=== PATIENT | female | born 1995 | race Caucasian/White ===

== ENCOUNTER → 2018-02-21 18:33 | Outpatient (CLI) | payer BC, SELFPAY ==
[2018-02-21 13:24] VITALS: BMI 22.7
[2018-02-21 21:15] LABS: Chlamydia Trachomatis by PCR Negative (Negative); Neisserai gonorrhoeae by PCR Negative (Negative); Probe Check PASS; Sample Adequacy Control PASS; Specimen Processing Control PASS
[2018-02-24 14:49] LABS: HPV Reflexed? NOT INDICATED
== END ==
PROVIDERS: Referring Provider Obstetrics & Gynecology; Visit Provider Obstetrics & Gynecology
DX: Z34.90 Encounter for supervision of normal pregnancy, unspecified, unspecified trimester (principal)
CPT/HCPCS: 87086; 87088; 87491; 87591; 87624; 88175; G0145

== ENCOUNTER 2021-02-10 18:03 | Emergency (ER) | payer BC, SELFPAY ==
[2021-02-10 18:04] VITALS: BP 113/77; PULSE 108; RESP 14; TEMP 35.6; O2SAT 98; BMI 22.5
[2021-02-10 20:21] VITALS: RESP 16
--- NOTE | 2021-02-10 20:32 | EDS_ITS ---
HPI History of Present Illness Chief Complaint: Foreign Body Informant: patient Narrative Narrative: Patient presents concerned that she may have a tampon stuck in her vagina. She states she last used a tampon on . She does not member if she took it out or not. Today she noted a string in the toilet and is concerned that she still has a tampon in. She denies significant pain. PFSH PFSH Medical History no medical history no medical history Home Medications norelgestromin-ethin.estradiol [Xulane] 1 patch TRANSDERMAL 02/10/21 [History Last Taken Unknown] Allergy/AdvReac Type Severity Reaction Status Date / Time No Known Allergies Allergy Verified 02/10/21 18:04 Social History Smoking Status: Current every day smoker tobacco type: cigarettes alcohol intake: never substance use type: does not use caffeine: No what type of physical activity do you participate in: running frequency: 5-6 times per week seatbelt use: always do you feel safe at home: Yes additional social history: Single-Works at [employer] ROS ROS ED Constitutional Constitutional ED: Denies chills or fever(s) Eyes Eyes: Denies change in vision ENT ENT ED: Denies sore throat Cardiovascular Cardiovascular: Denies chest pain Respiratory/Chest Respiratory/Chest: Denies cough or dyspnea Gastrointestinal Gastrointestinal: Reports abdominal pain; Denies diarrhea, nausea or vomiting Genitourinary Genitourinary ED: Denies dysuria or hematuria Musculoskeletal Musculoskeletal: Denies back pain Integumentary Denies rash Neurologic Neurologic: Denies headache(s) or weakness Allergic/Immunologic Allergic/Immunologic ED: Denies urticaria EXAM Physical Exam Const Vital Signs: 02/10/21 18:04 02/10/21 20:21 Temperature 96.1 F L Temperature Source Temporal Pulse Rate 108 H Respiratory Rate 14 16 Blood Pressure 113/77 Blood Pressure Mean 89 Pulse Ox 98 Oxygen Delivery Method Room Air Positive well nourished and well developed General Appearance ED: well developed Eyes PERRL and EOMs intact bilaterally Neck supple Chest Wall inspection of chest normal and palpation of chest normal Resp normal respiratory effort and clear to auscultation bilaterally Cardio regular rate and regular rhythm GI normal to inspection, nondistended, normoactive bowel sounds and non-tender Palpation: soft Narrative: Pelvic examination performed. No foreign body noted. No tampon. No significant discharge. Extremity normal to inspection Neuro oriented x3 Sensorium / Orientation: alert Psych mental status grossly normal Skin no rashes or lesions noted [facility] Treatment and Re-Evaluation Comments:: Pelvic exam reveals no evidence of retained foreign body. Patient will be discharged. Discharge Plan Triage Chief Complaint: Foreign Body ED Provider: Puja Gil Dx/Rx/DC Orders Clinical Impression: Well adult health check Prescriptions: No Action Xulane 150-35 mcg/24 hr patch weekly 1 patch transdermal RF: 0 Primary Care Provider: NOT,DEFINED Referrals: NOT,DEFINED [Primary Care Provider] - Disposition Disposition: Home, Self Care
[2021-02-10 20:44] VITALS: RESP 14
== END 2021-02-10 20:45 | disposition home or self-care (01) ==
LOC: ED 20:42
PROVIDERS: Emergency Provider Emergency Medicine
DX: T19.2XXA Foreign body in vulva and vagina, initial encounter (principal); M79.5 Residual foreign body in soft tissue; W45.8XXA Other foreign body or object entering through skin, initial encounter; Y92.9 Unspecified place or not applicable; Y99.9 Unspecified external cause status; F17.210 Nicotine dependence, cigarettes, uncomplicated
CPT/HCPCS: 99282